=== PATIENT | male | born 1955 | race Caucasian/White ===

== ENCOUNTER → 2017-04-18 | Outpatient (REF) | payer BC | LOC: M LAB REF 16:31 | PROVIDERS: ATTEND Nurse Practitioner Adult Health | DX: R79.82 Elevated C-reactive protein (CRP) (principal) ==

== ENCOUNTER → 2019-03-15 | Outpatient (CLI) | payer BC ==
[~2019-03-15] MED LIST: AMLO5TAB6 PO; SYNT112T2 PO
--- NOTE | 2019-03-15 13:17 | REP ---
REASON: History of renal malignancy. PRIORS: None. FINDINGS: The superior mediastinal structures are midline. The cardiac silhouette is unremarkable in size, shape, and position. The diaphragmatic surfaces of the lungs are regular, and the costophrenic angles are clear. The pulmonary ann are clear. The imaged osseous structures are intact. COMMENT: If clinical suspicion is high due to the patient's cancer history then contrast enhanced CT is more sensitive. IMPRESSION: There is no acute cardiopulmonary disease. Electronically Signed by Arturo Lilly DO 03/15/2019 01:41 P
[2019-03-15 18:01] LABS: BLOOD UREA NITROGEN 20 MG/DL (7-18); CREATININE FOR GFR 1.01 MG/DL (0.70-1.30); GLOMERULAR FILTRATION RATE > 60.0 (>49); PROSTATIC SPECIFIC AG MONITOR 2.27 NG/ML (< 4.00)
== END ==
LOC: M WUC 12:39
PROVIDERS: ATTEND Urology
DX: R97.20 Elevated prostate specific antigen [PSA] (principal); Z01.812 Encounter for preprocedural laboratory examination; Z85.528 Personal history of other malignant neoplasm of kidney

== ENCOUNTER 2019-06-03 18:11 | Emergency (ER) | payer BC ==
[~2019-06-03] VITALS: Ht 175.3 cm; Wt 86.4 kg
[2019-06-03] MEDS ORDERED: AMLO5TAB6 PO (18:27)
[2019-06-03] MEDS ORDERED: SYNT112T2 PO (18:27)
[2019-06-03] MEDS ORDERED: ADACEL/BOOSTRIX VACCINE (DIPHTH/PERTUSS/ACELL/TETANUS)0.5ML SYR (90715) IM ONE (20:30)
[2019-06-03 20:41] VITALS: BP 170/79
== END 2019-06-03 20:49 | disposition home or self-care (01) ==
LOC: M ED 18:11
DX: S01.01XA Laceration without foreign body of scalp, initial encounter (principal); W22.09XA Striking against other stationary object, initial encounter; Y92.098 Other place in other non-institutional residence as the place of occurrence of the external cause; Z79.899 Other long term (current) drug therapy

== ENCOUNTER 2019-09-23 06:25 | Day surgery (SDC) | payer BC ==
[~2019-09-23] VITALS: Ht 175.3 cm; Wt 89.4 kg
[2019-09-23] MEDS ORDERED: NS 1,000 ML IV ONE (06:30)
[2019-09-23] MEDS ORDERED: LIDOCAINE 2% INJ 100 MG/5 ML SDV (FOR ANES.) As Ordered ONE (07:12)
[2019-09-23] MEDS ORDERED: propofoL 200 MG/20 ML VIAL As Ordered ONE ×2 (07:12→08:11)
--- NOTE | 2019-09-23 08:30 | ROOR ---
Patient Name: Femi Stallworth Procedure Date: 09/23/2019 8:02 AM Date of : 1955 Age: 64 Room: [facility] Gender: Male Note Status: Finalized Procedure: Total Colonoscopy to Cecum Indications: Screening for colorectal malignant neoplasm, Last colonoscopy: 2007 Providers: Nacho Walsh MD Referring MD: Heaven Fraser NP Requesting Provider: Medicines: Monitored Anesthesia Care Complications: No immediate complications. Procedure: Pre-Anesthesia Assessment: - The heart rate, respiratory rate, oxygen saturations, blood pressure, adequacy of pulmonary ventilation, and response to care were monitored throughout the procedure. The Colonoscope was introduced through the anus and advanced to the cecum, identified by appendiceal orifice and ileocecal valve. The colonoscopy was performed without difficulty. The patient tolerated the procedure well. The quality of the bowel preparation was excellent. Findings: The perianal and digital rectal examinations were normal. Non-bleeding internal hemorrhoids were found during retroflexion. The hemorrhoids were small and Grade I (internal hemorrhoids that do not prolapse). Scattered small-mouthed diverticula were found in the recto-sigmoid colon, sigmoid colon and descending colon. The exam was otherwise without abnormality on direct and retroflexion views. Impression: - Non-bleeding internal hemorrhoids. - Diverticulosis in the recto-sigmoid colon, in the sigmoid colon and in the descending colon. - The examination was otherwise normal on direct and retroflexion views. - No specimens collected. - The exam was otherwise normal to the cecum. Recommendation: - Patient has a contact number available for emergencies. The signs and symptoms of potential delayed complications were discussed with the patient. Return to normal activities tomorrow. Written discharge instructions were provided to the patient. - High fiber diet. - Discharge patient to home. - Continue present medications. - Repeat colonoscopy in 10 years for screening purposes. - Return to referring physician. - The findings and recommendations were discussed with the patient's family. Nacho Walsh MD Nacho Walsh MD 09/23/2019 8:29:32 AM Electronically signed by Nacho Walsh MD Number of Addenda: 0 Note Initiated On: 09/23/2019 8:02 AM Estimated Blood Loss: Estimated blood loss: none.
[2019-09-23 08:57] VITALS: BP 166/81
== END 2019-09-23 08:59 | disposition home or self-care (01) ==
LOC: M OPP 06:25
PROVIDERS: ATTEND Internal Medicine Gastroenterology
DX: Z12.11 Encounter for screening for malignant neoplasm of colon (principal); K64.0 First degree hemorrhoids; K57.30 Diverticulosis of large intestine without perforation or abscess without bleeding; Z79.899 Other long term (current) drug therapy

== ENCOUNTER → 2020-03-09 | Outpatient (REF) | payer BC ==
[~2020-03-09] MED LIST changes: +ACET-897 PO; +AMLO1TAB24 PO; +AMLO1TAB25 PO; -AMLO5TAB6 PO; +CIPR500T3; +CIPR500T3 PO; +LEVO500T3 PO; +LOSA50TA88; +LOSA50TA88 PO; +PROBCAP14 PO
[2020-04-23 13:01] LABS: BLOOD UREA NITROGEN 19 MG/DL (7-18); CREATININE FOR GFR 1.17 MG/DL (0.70-1.30); GLOMERULAR FILTRATION RATE > 60.0 (>49); PROSTATIC SPECIFIC AG MONITOR 4.59 NG/ML (< 4.00)
== END ==
LOC: M WUC 12:57
PROVIDERS: ATTEND Urology
DX: N40.1 Benign prostatic hyperplasia with lower urinary tract symptoms (principal); Z85.528 Personal history of other malignant neoplasm of kidney

== ENCOUNTER 2020-06-09 17:28 | Inpatient (IN) | payer BC ==
[~2020-06-09] VITALS: Ht 175.3 cm; Wt 96.0 kg
[2020-06-09] MEDS: NS 1,000 ML IV SCH (02:00)
[~2020-06-09 17:28] MED LIST changes: -ACET-897 PO; -AMLO1TAB25 PO; -CIPR500T3; -CIPR500T3 PO; -LEVO500T3 PO; -LOSA50TA88; -LOSA50TA88 PO; -PROBCAP14 PO
[2020-06-09 19:18] LABS: BASO % 0.3 % (0.0-1.0); EOS % 0.2 % (0.0-3.0); HEMATOCRIT 42.2 % (42.0-52.0); HEMOGLOBIN 13.6 g/dl (13.5-17.5); LYMPH # 0.5 10^3/uL (1.5-5.0); LYMPH % 3.5 % (24.0-44.0); MEAN CORPUSCULAR HEMOGLOBIN 27.1 pg (27.0-33.0); MEAN CORPUSCULAR HGB CONC 32.2 g/dl (32.0-36.5); MEAN CORPUSCULAR VOLUME 84.2 fl (80.0-96.0); MONO # 0.7 10^3/uL (0.0-0.8); MONO % 5.2 % (0.0-5.0); NEUTROPHILS # 12.6 10^3/uL (1.5-8.5); NEUTROPHILS % 89.9 % (36.0-66.0); PLATELET COUNT, AUTOMATED 222 10^3/uL (150-450); RED BLOOD COUNT 5.01 10^6/uL (4.30-6.10)
[2020-06-09 19:42] LABS: ALBUMIN 3.8 GM/DL (3.2-5.2); ALT/SGPT 26 U/L (12-78); BILIRUBIN,DIRECT 0.2 MG/DL (0.0-0.2); BILIRUBIN,TOTAL 0.5 MG/DL (0.2-1.0); BLOOD UREA NITROGEN 22 MG/DL (7-18); CALCIUM LEVEL 9.2 MG/DL (8.8-10.2); CARBON DIOXIDE LEVEL 24 MEQ/L (21-32); CHLORIDE LEVEL 103 MEQ/L (98-107); CREATININE FOR GFR 1.26 MG/DL (0.70-1.30); GLOMERULAR FILTRATION RATE > 60.0 (>49); GLUCOSE, FASTING 111 MG/DL (70-100); POTASSIUM SERUM 3.9 MEQ/L (3.5-5.1); SODIUM LEVEL 134 MEQ/L (136-145); TOTAL PROTEIN 7.2 GM/DL (6.4-8.2)
[2020-06-09] MEDS ORDERED: ACETAMINOPHEN TAB 650MG DOSE (2X325MG) PO ONE (19:45)
[2020-06-09] MEDS ORDERED: NS 1,000 ML IV ONE (19:45)
[2020-06-09] MEDS ORDERED: PIPERACILLIN/TAZOBACTAM SOD 3.375 GM in D5W MINI-BAG PLUS 50 ML IV ONE (20:00)
[2020-06-09] MEDS ORDERED: CIPR500T3 (20:20)
[2020-06-09] MEDS ORDERED: LOSA50TA88 (20:20)
[2020-06-09] MEDS ORDERED: CIPR500T3 PO (21:50)
[2020-06-09] MEDS ORDERED: ACET-897 PO (21:50)
[2020-06-09] MEDS ORDERED: LOSA50TA88 PO (21:50)
[2020-06-09] MEDS ORDERED: AMLO1TAB25 PO (21:50)
[2020-06-09] MEDS ORDERED: MOM 30ML SUSPENSION UDC PO PRN (22:30)
[2020-06-09] MEDS ORDERED: VANCOMYCIN HCL 1,000 MG, VIAL MATE ADAPTER 1 EACH in D5W 250 ML IV ONE (22:45)
--- NOTE | 2020-06-09 22:54 | HPEPDOC ---
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 These symptoms developed after prostate biopsy done yesterday. Tells me he had been feeling well up until this point and felt well immediately after the biopsy. Tells me he feels otherwise well with no other new complaints. Denies any shortness of breath or chest pain. Has history of urinary frequency for about 6 years for which she follows up with urology Dr. Scales. He last had an MRI of his prostate 6 years ago and then again 2 weeks ago with a suspicious area which prompted urology to request a prostate biopsy which was completed yesterday in [facility]. In the ED patient met sepsis criteria with tachycardia, leukocytosis, fever and was started on Zosyn and IV fluids. Initial lactate was 1.58 and blood pressure was okay. Patient will be admitted to medical unit for medical management of sepsis which at this point is suspected to be due to acute bacterial prostatitis triggered by the biopsy. PAST MEDICAL HISTORY: History of liposarcoma with left-sided nephrectomy follows with Dr. Bailey Hypertension Hypothyroidism PAST SURGICAL HISTORY: Left-sided nephrectomy SOCIAL HISTORY: Denies alcohol use Denies tobacco use Denies illicit drug use FAMILY HISTORY: Mom had diabetes and thyroid cancer Grandmother has history of bladder cancer ALLERGIES: Please see below. REVIEW OF SYSTEMS: Constitutional: No sweating or weight loss. Dorsalis fever, chills, malaise Eyes: No eye pain or acute blurred vision HENT: No complaints of headache or sore throat Cadiovascular: No Chest pain or palpitations Pulm: No SOB or cough Gastrointestinal: No N/V, no abdominal pain. Genitourinary: No dysuria or hematuria. Reports urinary frequency. Musculoskeletal: No back pain or joint pain Skin: No rash or jaundice Neurological: No weakness. HOME MEDICATIONS: Please see below. PHYSICAL EXAMINATION: Constitutional: Awake and alert, in no apparent distress ENT: Sclera are clear. Mucosa is moist. Respiratory: Lungs CTA bilaterally. No respiratory distress. No use of accessory muscles. Cardiovascular: RRR S1 and S2 are normal, no murmur Gastrointestinal: Abdomen is soft, non distended, non tender, BS present. : No CVA tenderness Musculoskeletal: No edema. No joint deformities. RUE 5/5, LUE 5/5, BLE 5/5 Neurologic: No focal neurological deficit. Mental Status: A&O x3, normal affect Skin: Warm, dry. Left flank scar site of left nephrectomy. LABORATORY DATA: See below. IMAGING: Chest x-ray pending. MICROBIOLOGY: Please see below. 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 In the ED patient met sepsis criteria with tachycardia, leukocytosis, fever and was started on Zosyn and IV fluids. Patient will be admitted to medical unit for medical management of sepsis which at this point is suspected to be due to acute bacterial prostatitis triggered by the biopsy. # Sepsis: Suspected to be secondary to acute bacterial prostatitis. Fu BCx, UCx, CXR. Sepsis bundle. Initial lactate 1.58. Fu repeat lactate. IVFs NS @140. Started on Zoysn & Vanc. MRSA screen pending. # Hypertension: Continue home meds. Monitor and titrate. # Hypothyroidism: Continue levothyroxine. # L. nephrectomy: Due to liposarcoma. avoid nephrotoxins. Follows with Dr Bailey. # DVT prophylaxis: Heparin A [facility] Hospitalist Vital Signs Vital Signs Date Time Temp Pulse Resp B/P (MAP) Pulse Ox O2 Delivery O2 Flow Rate FiO2 06/09/20 21:19 99.7 06/09/20 21:15 83 118/64 (82) 95 Room Air 06/09/20 19:13 18 Laboratory Data Labs 24H Laboratory Tests 2 06/09/20 18:45: Immature Granulocyte % (Auto) 0.9, Neutrophils (%) (Auto) 89.9H, Lymphocytes (%) (Auto) 3.5L, Monocytes (%) (Auto) 5.2H, Eosinophils (%) (Auto) 0.2, Basophils (%) (Auto) 0.3, Neutrophils # (Auto) 12.6H, Lymphocytes # (Auto) 0.5L, Monocytes # (Auto) 0.7, Eosinophils # (Auto) 0.0, Basophils # (Auto) 0.0, Nucleated Red Blood Cells % (auto) 0.0, Urine Color YELLOW, Urine Appearance CLEAR, Urine pH 5.0, Urine Specific [place] 1.020, Urine Protein 1+H, Urine Glucose (UA) NEGATIVE, Urine Ketones NEGATIVE, Urine Blood NEGATIVE, Urine Nitrite NEGATIVE, Urine Bilirubin NEGATIVE, Urine Urobilinogen 0.2, Urine Leukocyte Esterase NEGATIVE, Urine WBC (Auto) 1, Urine RBC (Auto) 5H, Urine Hyaline Casts (Auto) 0, Urine Bacteria (Auto) NEGATIVE, Urine Squamous Epithelial Cells 0, Urine Sperm (Auto) , Anion Gap 7L, Glomerular Filtration Rate > 60.0, Calcium Level 9.2, Total Bilirubin 0.5, Direct Bilirubin 0.2, Aspartate Amino Transf (AST/SGOT) 20, Alanine Aminotransferase (ALT/SGPT) 26, Alkaline Phosphatase 54, Total Protein 7.2, Albumin 3.8, Albumin/Globulin Ratio 1.1 06/09/20 21:17: POC Lactate (Misc Panel) 1.58 CBC/BMP Laboratory Tests 06/09/20 18:45 Microbiology Microbiology 06/09/20 Respiratory Virus Panel (PCR) (CLAUDIA) - Final, Complete 06/09/20 Blood Culture, Received Pending 06/09/20 Blood Culture, Received Pending Home Medications Scheduled Amlodipine Besylate (Amlodipine Besylate) 10 Mg Tablet, 5 MG PO DAILY Ciprofloxacin HCl (Ciprofloxacin HCl) 500 Mg Tablet, 500 MG PO BID HAS TAKEN 5 OF 8 DOSES Levothyroxine Sodium (Synthroid) 112 Mcg Tablet, 112 MCG PO DAILY Losartan Potassium (Losartan Potassium) 50 Mg Tablet, 50 MG PO DAILY Scheduled PRN Acetaminophen (Tylenol Extra Strength) 500 Mg Tablet, 1,000 MG PO Q6H PRN for PAIN / FEVER Allergies Coded Allergies: No Known Allergies (Unverified , 06/03/19) A-FIB/CHADSVASC A-FIB History Current/History of A-Fib/PAF?: No CRISTOBAL MARTE MD Jun 09, 2020 22:54
--- NOTE | 2020-06-09 23:23 | REPVR ---
PROCEDURE INFORMATION: Exam: XR Chest, 1 View Exam date and time: 06/09/2020 10:59 PM Age: 64 years old Clinical indication: Other: Sepsis TECHNIQUE: Imaging protocol: XR of the chest Views: 1 view. COMPARISON: CR CHEST 2 VIEW 03/15/2019 12:50 PM FINDINGS: Lungs: There is no evidence of consolidation of lung. Pleural space: There is no evidence of pneumothorax. There is blunting of the right costophrenic angle which may be the result of a small pleural effusion or pleurisy. Heart/Mediastinum: There is mild prominence left side of the heart. Bones/joints: Unremarkable. IMPRESSION: Mild blunting of the right costophrenic angle may be the result of a small right pleural effusion or changes of pleurisy. Electronically signed by: Juan C Burleson On 06/09/2020 23:22:53 PM
[2020-06-10] VITALS (7 sets, daily range): BP systolic 129–168; BP diastolic 65–82
[2020-06-10] MEDS: ACETAMINOPHEN TAB 650MG DOSE (2X325MG) PO PRN ×5 (01:12→21:12)
[2020-06-10] MEDS ORDERED: PIPERACILLIN/TAZOBACTAM SOD 4.5 GM in D5W MINI-BAG PLUS 50 ML IV SCH (02:00)
[2020-06-10] MEDS: VANCOMYCIN HCL 1,000 MG, VIAL MATE ADAPTER 1 EACH in D5W 250 ML IV SCH ×4 (02:15→18:30)
[2020-06-10] MEDS: PIPERACILLIN/TAZOBACTAM SOD 4.5 GM in D5W MINI-BAG PLUS 50 ML IV SCH ×4 (04:20→21:13)
[2020-06-10 06:02] LABS: HEMATOCRIT 44.3 % (42.0-52.0); MEAN CORPUSCULAR HEMOGLOBIN 27.2 pg (27.0-33.0); MEAN CORPUSCULAR HGB CONC 31.6 g/dl (32.0-36.5); MEAN CORPUSCULAR VOLUME 86.2 fl (80.0-96.0); PLATELET COUNT, AUTOMATED 203 10^3/uL (150-450); RED BLOOD COUNT 5.14 10^6/uL (4.30-6.10); WHITE BLOOD COUNT 14.3 10^3/uL (4.0-10.0)
[2020-06-10 06:31] LABS: ALBUMIN 3.4 GM/DL (3.2-5.2); BILIRUBIN,TOTAL 1.1 MG/DL (0.2-1.0); CALCIUM LEVEL 8.6 MG/DL (8.8-10.2); CREATININE FOR GFR 1.33 MG/DL (0.70-1.30); POTASSIUM SERUM 4.2 MEQ/L (3.5-5.1); TOTAL PROTEIN 6.8 GM/DL (6.4-8.2)
[2020-06-10] MEDS ORDERED: FLUBLOK(EGG FREE)(QUAD)INFLUENZA VACC 0.5ML SYRINGE 18YRS & OLDER IM ONE (09:00)
[2020-06-10] MEDS: LEVOTHYROXINE 112MCG TABLET (0.112MG) PO SCH (09:42)
[2020-06-10] MEDS: LOSARTAN 50MG TABLET PO SCH (09:43)
[2020-06-10] MEDS: amLODIPine 5 MG TAB PO SCH (09:43)
[2020-06-10] MEDS: HEPARIN SOD (PORCINE) 5000UNITS/ML 1ML VIAL/SYRINGE SC SCH ×2 (09:45→21:13)
--- NOTE | 2020-06-10 12:24 | IPNPDOC ---
Date Seen The patient was seen on 06/10/20. Progress Note SUBJECTIVE: T max overnight 103.1. WBC slightly incr 14.3, on zosyn and vancomycin. Requesting most recent biopsy, urology office and MRI notes. Denies chest pain, shortness of breath, n/v/d. OBJECTIVE: PHYSICAL EXAMINATION: VS: Please see below Constitutional: Feels warm to touch today, Awake and alert, in no apparent distress ENT: Sclera are clear. Mucosa is moist. Respiratory: Lungs CTA bilaterally. No respiratory distress. No use of accessory muscles. Cardiovascular: tachycardia, sinus. RRR S1 and S2 are normal, no murmur Gastrointestinal: Abdomen is soft, non distended, non tender, BS present. : No CVA tenderness Musculoskeletal: No edema. No joint deformities. RUE 5/5, LUE 5/5, BLE 5/5 Neurologic: No focal neurological deficit. Mental Status: A&O x3, normal affect Skin: Warm, dry. Left flank scar site of left nephrectomy. LABORATORY DATA: See below. IMAGING: Chest x-ray pending. 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 PLAN: # Sepsis 2/2 to acute bacterial prostatitis. R/o other bacterial source. -WBC slightly incr to 14.3, febrile with T max 103.1. -F/u BCx, uCx. -MRSA neg -LA wnl. -C/w IVFs, zosyn, vancomycin -F/u daily labs, records requested from most recent biopsy, urology office note, MRI results -If s/s of sepsis worsen, consider CT abd/pelvis with contrast to r/o prostate abscess # Hypertension -Stable. -C/w home meds # Hypothyroidism -C/w levothyroxine # Hx of left nephrectomy. hx of liposarcoma -Avoid nephrotoxins -Follows with Dr. Bailey #Prostate growth? -Recent prostate biopsy -F/u records when they arrive to see what they are suspecting (poss malignancy?) # DVT prophylaxis -Heparin DISPOSITION: C/w plan above under inpatient status. F/u records. Consider urology consult. Plan is discharge home when medically improved. VS, I&O, 24H, [facility] Vital Signs/I&O Vital Signs Date Time Temp Pulse Resp B/P (MAP) Pulse Ox O2 Delivery O2 Flow Rate FiO2 06/10/20 09:55 99.7 06/10/20 09:43 136/69 06/10/20 09:43 94 06/10/20 07:52 18 95 Room Air I&O- Last 24 Hours up to 6 AM 06/10/20 06:00 Intake Total 1050 ml Output Total 200 ml Balance 850 ml Laboratory Data 24H LABS Laboratory Tests 2 06/09/20 18:45: Immature Granulocyte % (Auto) 0.9, Neutrophils (%) (Auto) 89.9H, Lymphocytes (%) (Auto) 3.5L, Monocytes (%) (Auto) 5.2H, Eosinophils (%) (Auto) 0.2, Basophils (%) (Auto) 0.3, Neutrophils # (Auto) 12.6H, Lymphocytes # (Auto) 0.5L, Monocytes # (Auto) 0.7, Eosinophils # (Auto) 0.0, Basophils # (Auto) 0.0, Nucleated Red Blood Cells % (auto) 0.0, Urine Color YELLOW, Urine Appearance CLEAR, Urine pH 5.0, Urine Specific [place] 1.020, Urine Protein 1+H, Urine Glucose (UA) NEGATIVE, Urine Ketones NEGATIVE, Urine Blood NEGATIVE, Urine Nitrite NEGATIVE, Urine Bilirubin NEGATIVE, Urine Urobilinogen 0.2, Urine Leukocyte Esterase NEGATIVE, Urine WBC (Auto) 1, Urine RBC (Auto) 5H, Urine Hyaline Casts (Auto) 0, Urine Bacteria (Auto) NEGATIVE, Urine Squamous Epithelial Cells 0, Urine Sperm (Auto) , Anion Gap 7L, Glomerular Filtration Rate > 60.0, Calcium Level 9.2, Total Bilirubin 0.5, Direct Bilirubin 0.2, Aspartate Amino Transf (AST/SGOT) 20, Alanine Aminotransferase (ALT/SGPT) 26, Alkaline Phosphatase 54, Total Protein 7.2, Albumin 3.8, Albumin/Globulin Ratio 1.1 06/09/20 18:46: Lactic Acid Level 1.9 06/09/20 21:17: POC Lactate (Misc Panel) 1.58 06/10/20 05:21: Nucleated Red Blood Cells % (auto) 0.0, Anion Gap 5L, Glomerular Filtration Rate 58.0, Calcium Level 8.6L, Total Bilirubin 1.1#H, Aspartate Amino Transf (AST/SGOT) 19, Alanine Aminotransferase (ALT/SGPT) 24, Alkaline Phosphatase 51, Total Protein 6.8, Albumin 3.4, Albumin/Globulin Ratio 1.0, Lactic Acid Level 1.9 06/10/20 09:56: Methicillin-Resist S.aureus DNA PCR NOT DETECTED CBC/BMP Laboratory Tests 06/09/20 18:45 06/10/20 05:21 Microbiology Microbiology 06/09/20 Urine Culture, Received Pending 06/09/20 Respiratory Virus Panel (PCR) (CLAUDIA) - Final, Complete 06/09/20 Blood Culture, Received Pending 06/09/20 Blood Culture, Received Pending Current Medications Current Medications Medications (Trade) Dose Ordered Sig/Jacque Route PRN Reason Start Time Stop Time Status Last Admin Dose Admin Acetaminophen (Tylenol Tab) 650 mg Q4H PRN PO PAIN OR FEVER 06/09/20 22:30 06/10/20 12:00 Amlodipine Besylate (Norvasc) 5 mg DAILY PO 06/10/20 09:00 06/10/20 09:43 Heparin Sodium (Porcine) (Heparin) 5,000 units Q12H SC 06/10/20 09:00 06/10/20 09:45 Home Med (Med Rec Complete!) ASDIRECTED XX 06/09/20 22:00 06/09/20 21:52 DC Levothyroxine Sodium (Synthroid) 112 mcg DAILY PO 06/10/20 09:00 06/10/20 09:42 Losartan Potassium (Cozaar) 50 mg DAILY PO 06/10/20 09:00 06/10/20 09:43 Magnesium Hydroxide (Milk Of Magnesia) 30 ml DAILY PRN PO CONSTIPATION 06/09/20 22:30 Piperacillin Sod/ Tazobactam Sod 4.5 gm/Dextrose 50 ml @ 50 mls/hr Q6H IV 06/10/20 02:00 06/10/20 02:13 DC Piperacillin Sod/ Tazobactam Sod 4.5 gm/Dextrose 50 ml @ 50 mls/hr Q6H IV 06/10/20 04:00 06/10/20 09:42 Sodium Chloride 1,000 ml @ 100 mls/hr Q10H IV 06/09/20 22:45 06/11/20 11:02 06/09/20 02:00 Vancomycin HCl 1000 mg/IV Miscellaneous Supplies 1 each/ Dextrose 270 ml @ 270 mls/hr Q8H IV 06/10/20 03:00 06/10/20 11:36 Allergies Coded Allergies: No Known Allergies (Unverified , 06/03/19) Patito Reyes MD Jun 10, 2020 12:24
[2020-06-10] MEDS: NS 1,000 ML IV SCH (14:47)
[2020-06-11] MEDS: ACETAMINOPHEN TAB 650MG DOSE (2X325MG) PO PRN ×4 (00:57→16:23)
[2020-06-11] MEDS: VANCOMYCIN HCL 1,000 MG, VIAL MATE ADAPTER 1 EACH in D5W 250 ML IV SCH ×3 (02:36→18:41)
[2020-06-11] MEDS: PIPERACILLIN/TAZOBACTAM SOD 4.5 GM in D5W MINI-BAG PLUS 50 ML IV SCH ×4 (04:12→22:49)
[2020-06-11 04:22] LABS: HEMATOCRIT 43.1 % (42.0-52.0); HEMOGLOBIN 13.1 g/dl (13.5-17.5); MEAN CORPUSCULAR HEMOGLOBIN 27.1 pg (27.0-33.0); MEAN CORPUSCULAR HGB CONC 30.4 g/dl (32.0-36.5); MEAN CORPUSCULAR VOLUME 89.2 fl (80.0-96.0); PLATELET COUNT, AUTOMATED 140 10^3/uL (150-450); RED BLOOD COUNT 4.83 10^6/uL (4.30-6.10); WHITE BLOOD COUNT 7.6 10^3/uL (4.0-10.0)
[2020-06-11 04:48] LABS: ALBUMIN 2.9 GM/DL (3.2-5.2); BILIRUBIN,TOTAL 0.7 MG/DL (0.2-1.0); CREATININE FOR GFR 1.34 MG/DL (0.70-1.30); GLOMERULAR FILTRATION RATE 57.5 (>49); POTASSIUM SERUM 3.8 MEQ/L (3.5-5.1); TOTAL PROTEIN 6.2 GM/DL (6.4-8.2)
[2020-06-11 06:00] VITALS: BP 122/65
[2020-06-11 08:00] VITALS: BP 112/61
[2020-06-11] MEDS: HEPARIN SOD (PORCINE) 5000UNITS/ML 1ML VIAL/SYRINGE SC SCH (08:48)
[2020-06-11] MEDS: LEVOTHYROXINE 112MCG TABLET (0.112MG) PO SCH (08:49)
[2020-06-11] MEDS: LOSARTAN 50MG TABLET PO SCH (08:49)
[2020-06-11 08:50] VITALS: BP 112/61
[2020-06-11] MEDS: amLODIPine 5 MG TAB PO SCH (08:50)
[2020-06-11] MEDS: NS 1,000 ML IV SCH (08:55)
[2020-06-11] MEDS ORDERED: ISOVUE-370 76% 100ML VIAL As Ordered ONE (09:13)
--- NOTE | 2020-06-11 10:06 | REP ---
INDICATION: r/o prostate abscess. COMPARISON: None TECHNIQUE: Both of 100 mL Isovue 370 scanning through the abdomen pelvis with coronal and sagittal reconstructions provided. FINDINGS: CT abdomen lung bases show epicardial fat pad and some minor scarring medial segment right middle lobe. There is some curvilinear atelectasis or scarring in the deep sulcus left lower lobe. No effusion or definite infiltrate. Heart size not grossly enlarged. There is a small hiatal hernia. The liver is upper limits of normal at 18 cm diameter midclavicular line and some fatty infiltration noted. Left lobe mildly prominent. No focal hepatic mass or biliary dilatation. Gallbladder without calcified stone or mass spleen unremarkable. There is no ascites in the upper abdomen, adrenal glands were normal. Right kidney shows no solid mass, stone or hydronephrosis. There is a sub cm cortical cyst lower pole of the right kidney, left kidney is surgically absent. There are clips from the prior nephrectomy. Left adrenal gland normal. Small bowel loops occupy the left renal fossa. Pancreas shows no mass, ductal dilatation, calcification or peripancreatic adenopathy. The aorta is without aneurysm or dissection. No periaortic, mesenteric or retroperitoneal pathologic sized lymphadenopathy. Lung window review of abdominal slices shows no perforation or free air. Appendix is seen and normal. Abdominal portion of colon and small bowel loops were unremarkable. No ventral hernia. Bone windows show no acute findings in the lumbar or thoracic spine and their posterior elements. Visualized ribs intact. CT pelvis: The bony sacrum, pelvis and hips show degenerative changes without fracture or destructive lesion. There is diverticulosis of the distal left colon and sigmoid without diverticulitis. Scattered stool and gas in the colon and an air-fluid level in the rectum with some stool. Prostate is enlarged measuring 5.9 x 4.7 cm. It elevates the bladder base. I do not see air bubbles or abscess within the prostate or adjacent soft tissues. Bladder without mass wall thickening or stone. Small bowel loops in the pelvis unremarkable no ventral or inguinal hernia nor pathologic sized inguinal adenopathy. IMPRESSION: 1. Prostate enlargement with indentation of the bladder base and without intra prostatic or periprostatic abscess identified. No air bubbles or perforation suggested. No free air in the pelvis. 2. Diverticulosis distal left colon and proximal sigmoid without diverticulitis. Stool and gas scattered throughout the colon but there is an air-fluid level within the rectum but no perirectal fluid or perforation evident. 3. Status post left nephrectomy with no mass in the left renal fossa. The adrenal glands, right kidney spleen pancreas and gallbladder were unremarkable. 4. Mild hepatomegaly and fatty infiltration of the liver without focal hepatic mass. A small hiatal hernia seen. <Electronically signed by Jose Browning > 06/11/20 1002
[2020-06-11 12:00] VITALS: BP 134/70
--- NOTE | 2020-06-11 15:01 | IPNPDOC ---
Date Seen The patient was seen on 06/11/20. Progress Note SUBJECTIVE: T max overnight 102.1. WBC now wnl at 7.6 from 14K, on zosyn and vancomycin. CT abd/pelvis with contrast ruled out prostate abscess. MRI done o/p received. Denies chest pain, shortness of breath, n/v/d. OBJECTIVE: PHYSICAL EXAMINATION: VS: Please see below Constitutional: NAD, sitting up in bed, Awake and alert, in no apparent distress ENT: Sclera are clear. Mucosa is moist. Respiratory: Lungs CTA bilaterally. No respiratory distress. No use of accessory muscles. Cardiovascular: tachycardia, sinus. RRR S1 and S2 are normal, no murmur Gastrointestinal: Abdomen is soft, non distended, non tender, BS present. : No CVA tenderness Musculoskeletal: No edema. No joint deformities. RUE 5/5, LUE 5/5, BLE 5/5 Neurologic: No focal neurological deficit. Mental Status: A&O x3, normal affect Skin: Warm, dry. Left flank scar site of left nephrectomy. LABORATORY DATA: See below. IMAGING: CT abd/pelvis with contrast: 1. Prostate enlargement with indentation of the bladder base and without intra prostatic or periprostatic abscess identified. No air bubbles or perforation suggested. No free air in the pelvis. 2. Diverticulosis distal left colon and proximal sigmoid without diverticulitis. Stool and gas scattered throughout the colon but there is an air-fluid level within the rectum but no perirectal fluid or perforation evident. 3. Status post left nephrectomy with no mass in the left renal fossa. The adrenal glands, right kidney spleen pancreas and gallbladder were unremarkable. 4. Mild hepatomegaly and fatty infiltration of the liver without focal hepatic mass. A small hiatal hernia seen. Chest x-ray: Mild blunting of the right costophrenic angle may be the result of a small right pleural effusion or changes of pleurisy. 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 PLAN: # Sepsis 2/2 to acute bacterial prostatitis. -WBC wnl this AM, febrile with T max 102F. -Micro above -C/w IVFs, zosyn, vancomycin -CT abd/pelvis with contrast above, ruled out abscess -At this time, would wait to see what abx continue to do. Although he spiked fevers last night, overall the temperatures have been decreasing so he may just need more time. All other sources of infection are ruled out. #Hematuria, acute -No caal catheter placement but has been on heparin here -Stopping heparin, monitor to see if continues -F/u CBC in AM -If continues, consider urology consult. #Left anterior apex prostate lesion s/p biopsy -Per o/p MRI (print out in paper chart), no extraprostatic malignancy identified in the pelvis -Pathology is to r/o malignancy -Patient to f/u as o/p with [facility]: Dr. Bundy and Dr. Lopez # Hypertension -Stable. -C/w home meds # Hypothyroidism -C/w levothyroxine # Hx of left nephrectomy. hx of liposarcoma -Avoid nephrotoxins -Follows with Dr. Bailey # DVT prophylaxis -Heparin DISPOSITION: C/w plan above under inpatient status. Plan is discharge home when medically improved. VS, I&O, 24H, [facility] Vital Signs/I&O Vital Signs Date Time Temp Pulse Resp B/P (MAP) Pulse Ox O2 Delivery O2 Flow Rate FiO2 06/11/20 12:00 100.4 70 16 134/70 (91) 97 Room Air I&O- Last 24 Hours up to 6 AM 06/11/20 05:59 Intake Total 2600 ml Output Total 320 ml Balance 2280 ml Laboratory Data 24H LABS Laboratory Tests 2 06/10/20 17:50: Vancomycin Level Trough 12.4 06/11/20 03:47: Nucleated Red Blood Cells % (auto) 0.0, Anion Gap 8, Glomerular Filtration Rate 57.5, Calcium Level 8.0L, Total Bilirubin 0.7, Aspartate Amino Transf (AST/SGOT) 37, Alanine Aminotransferase (ALT/SGPT) 40, Alkaline Phosphatase 43L, Total Pr otein 6.2L, Albumin 2.9L, Albumin/Globulin Ratio 0.9 06/11/20 09:55: Vancomycin Level Trough 15.7 CBC/BMP Laboratory Tests 06/11/20 03:47 Microbiology Microbiology 06/09/20 Urine Culture - Final, Complete 06/09/20 Respiratory Virus Panel (PCR) (CLAUDIA) - Final, Complete 06/09/20 Blood Culture - Preliminary, Resulted No growth after 24 hours . All specim... 06/09/20 Blood Culture - Preliminary, Resulted No growth after 24 hours . All specim... Current Medications Current Medications Medications (Trade) Dose Ordered Sig/Jacque Route PRN Reason Start Time Stop Time Status Last Admin Dose Admin Acetaminophen (Tylenol Tab) 650 mg Q4H PRN PO PAIN OR FEVER 06/09/20 22:30 06/11/20 12:46 Amlodipine Besylate (Norvasc) 5 mg DAILY PO 06/10/20 09:00 06/11/20 08:50 Heparin Sodium (Porcine) (Heparin) 5,000 units Q12H SC 06/10/20 09:00 06/11/20 14:47 DC 06/11/20 08:48 Home Med (Med Rec Complete!) ASDIRECTED XX 06/09/20 22:00 06/09/20 21:52 DC Levothyroxine Sodium (Synthroid) 112 mcg DAILY PO 06/10/20 09:00 06/11/20 08:49 Losartan Potassium (Cozaar) 50 mg DAILY PO 06/10/20 09:00 06/11/20 08:49 Magnesium Hydroxide (Milk Of Magnesia) 30 ml DAILY PRN PO CONSTIPATION 06/09/20 22:30 Piperacillin Sod/ Tazobactam Sod 4.5 gm/Dextrose 50 ml @ 50 mls/hr Q6H IV 06/10/20 02:00 06/10/20 02:13 DC Piperacillin Sod/ Tazobactam Sod 4.5 gm/Dextrose 50 ml @ 50 mls/hr Q6H IV 06/10/20 04:00 06/11/20 11:34 Sodium Chloride 1,000 ml @ 100 mls/hr Q10H IV 06/09/20 22:45 06/11/20 11:02 DC 06/11/20 08:55 Vancomycin HCl 1000 mg/IV Miscellaneous Supplies 1 each/ Dextrose 270 ml @ 270 mls/hr Q8H IV 06/10/20 03:00 06/11/20 12:46 Allergies Coded Allergies: No Known Allergies (Unverified , 06/03/19) Patito Reyes MD Jun 11, 2020 15:01
[2020-06-11 16:00] VITALS: BP 126/69
[2020-06-11 20:00] VITALS: BP 118/67
[2020-06-12] VITALS: BP 130/64
[2020-06-12] MEDS: NS 1,000 ML IV SCH ×2 (00:41→15:45)
[2020-06-12] MEDS: VANCOMYCIN HCL 1,000 MG, VIAL MATE ADAPTER 1 EACH in D5W 250 ML IV SCH ×2 (03:36→12:00)
[2020-06-12 04:00] VITALS: BP 148/72
[2020-06-12] MEDS: PIPERACILLIN/TAZOBACTAM SOD 4.5 GM in D5W MINI-BAG PLUS 50 ML IV SCH ×4 (05:06→23:22)
[2020-06-12 05:35] LABS: HEMATOCRIT 39.2 % (42.0-52.0); HEMOGLOBIN 12.3 g/dl (13.5-17.5); MEAN CORPUSCULAR HGB CONC 31.4 g/dl (32.0-36.5); PLATELET COUNT, AUTOMATED 161 10^3/uL (150-450); RED BLOOD COUNT 4.56 10^6/uL (4.30-6.10); WHITE BLOOD COUNT 5.4 10^3/uL (4.0-10.0)
[2020-06-12 05:59] LABS: ALBUMIN 2.7 GM/DL (3.2-5.2); BILIRUBIN,TOTAL 0.4 MG/DL (0.2-1.0); CALCIUM LEVEL 8.5 MG/DL (8.8-10.2); CREATININE FOR GFR 1.35 MG/DL (0.70-1.30); TOTAL PROTEIN 6.9 GM/DL (6.4-8.2)
[2020-06-12 07:54] VITALS: BP 142/87
[2020-06-12] MEDS: amLODIPine 5 MG TAB PO SCH (09:40)
[2020-06-12] MEDS: LEVOTHYROXINE 112MCG TABLET (0.112MG) PO SCH (09:40)
[2020-06-12] MEDS: LOSARTAN 50MG TABLET PO SCH (09:40)
[2020-06-12 11:00] LABS: PHOSPHORUS LEVEL 2.2 MG/DL (2.5-4.9)
[2020-06-12 12:00] VITALS: BP 149/78
[2020-06-12 20:00] VITALS: BP 136/74
--- NOTE | 2020-06-12 21:09 | IPNPDOC ---
Date Seen The patient was seen on 06/12/20. Progress Note SUBJECTIVE: Afebrile since 06/11/20 at 14:00. WBC remains wnl, d/mejia vancomycin today. Cr remained elevated at 1.35, incr IVFs. Denies chest pain, shortness of breath, n/v/d. OBJECTIVE: PHYSICAL EXAMINATION: VS: Please see below Constitutional: NAD, sitting up in bed, Awake and alert, in no apparent distress ENT: Sclera are clear. Mucosa is moist. Respiratory: Lungs CTA bilaterally. No respiratory distress. No use of accessory muscles. Cardiovascular: sinus. RRR S1 and S2 are normal, no murmur Gastrointestinal: Abdomen is soft, non distended, non tender, BS present. : No CVA tenderness Musculoskeletal: No edema. No joint deformities. RUE 5/5, LUE 5/5, BLE 5/5 Neurologic: No focal neurological deficit. Mental Status: A&O x3, normal affect Skin: Warm, dry. Left flank scar site of left nephrectomy. LABORATORY DATA: See below. IMAGING: CT abd/pelvis with contrast: 1. Prostate enlargement with indentation of the bladder base and without intra prostatic or periprostatic abscess identified. No air bubbles or perforation suggested. No free air in the pelvis. 2. Diverticulosis distal left colon and proximal sigmoid without diverticulitis. Stool and gas scattered throughout the colon but there is an air-fluid level within the rectum but no perirectal fluid or perforation evident. 3. Status post left nephrectomy with no mass in the left renal fossa. The adrenal glands, right kidney spleen pancreas and gallbladder were unremarkable. 4. Mild hepatomegaly and fatty infiltration of the liver without focal hepatic mass. A small hiatal hernia seen. Chest x-ray: Mild blunting of the right costophrenic angle may be the result of a small right pleural effusion or changes of pleurisy. 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 PLAN: # Sepsis 2/2 to acute bacterial prostatitis- resolved. -WBC wnl this AM, afebrile since 06/11 at 14:00 -Micro above -C/w IVFs, zosyn only. D/mejia vancomycin -CT abd/pelvis with contrast above, ruled out abscess -If afebrile overnight, plan is discharge with oral levofloxacin 500 mg PO daily x 4 weeks (empiric treatment) #Hematuria, acute likely 2/2 to heparin -No caal catheter placement but has been on heparin here -Stopped heparin, monitor to see if continues -F/u CBC in AM #Left anterior apex prostate lesion s/p biopsy -Per o/p MRI (print out in paper chart), no extraprostatic malignancy identified in the pelvis -Pathology is to r/o malignancy -Patient to f/u as o/p with [facility]: Dr. Bundy and Dr. Lopez # Hypertension -Stable. -C/w home meds # Hypothyroidism -C/w levothyroxine # Hx of left nephrectomy. hx of liposarcoma -Avoid nephrotoxins -Follows with Dr. Bailey # DVT prophylaxis -scd, teds DISPOSITION: C/w plan above under inpatient status. Plan is discharge home in AM if remains afebrile. VS, I&O, 24H, Fishbone Vital Signs/I&O Vital Signs Date Time Temp Pulse Resp B/P (MAP) Pulse Ox O2 Delivery O2 Flow Rate FiO2 06/12/20 20:00 98.0 67 18 136/74 (94) 96 Room Air I&O- Last 24 Hours up to 6 AM 06/12/20 06:00 Intake Total 3095 ml Output Total 875 ml Balance 2220 ml Laboratory Data 24H LABS Laboratory Tests 2 06/12/20 05:12: Nucleated Red Blood Cells % (auto) 0.0, Anion Gap 3L, Glomerular Filtration Rate 57.0, Calcium Level 8.5L, Phosphorus Level 2.2L, Magnesium Level 2.0, Total Bili adkins 0.4, Aspartate Amino Transf (AST/SGOT) 27, Alanine Aminotransferase (ALT/SGPT) 38, Alkaline Phosphatase 43L, Total Protein 6.9, Albumin 2.7L, Albumin/Globulin Ratio 0.6 CBC/BMP Laboratory Tests 06/12/20 05:12 Microbiology Microbiology 06/09/20 Urine Culture - Final, Complete 06/09/20 Respiratory Virus Panel (PCR) ([facility]UD[facility]) - Final, Complete 06/09/20 Blood Culture - Preliminary, Resulted No Growth after 72 hours. All specime... 06/09/20 Blood Culture - Preliminary, Resulted No Growth after 72 hours. All specime... Current Medications Current Medications Medications (Trade) Dose Ordered Sig/Jacque Route PRN Reason Start Time Stop Time Status Last Admin Dose Admin Acetaminophen (Tylenol Tab) 650 mg Q4H PRN PO PAIN OR FEVER 06/09/20 22:30 06/11/20 16:23 Amlodipine Besylate (Norvasc) 5 mg DAILY PO 06/10/20 09:00 06/12/20 09:40 Heparin Sodium (Porcine) (Heparin) 5,000 units Q12H SC 06/10/20 09:00 06/11/20 14:47 DC 06/11/20 08:48 Home Med (Med Rec Complete!) ASDIRECTED XX 06/09/20 22:00 06/09/20 21:52 DC Levothyroxine Sodium (Synthroid) 112 mcg DAILY PO 06/10/20 09:00 06/12/20 09:40 Losartan Potassium (Cozaar) 50 mg DAILY PO 06/10/20 09:00 06/12/20 09:40 Magnesium Hydroxide (Milk Of Magnesia) 30 ml DAILY PRN PO CONSTIPATION 06/09/20 22:30 Piperacillin Sod/ Tazobactam Sod 4.5 gm/Dextrose 50 ml @ 50 mls/hr Q6H IV 06/10/20 02:00 06/10/20 02:13 DC Piperacillin Sod/ Tazobactam Sod 4.5 gm/Dextrose 50 ml @ 50 mls/hr Q6H IV 06/10/20 04:00 06/12/20 15:45 Sodium Chloride 1,000 ml @ 100 mls/hr Q10H IV 06/09/20 22:45 06/11/20 11:02 DC 06/12/20 00:41 Sodium Chloride 1,000 ml @ 100 mls/hr Q10H IV 06/12/20 08:15 06/12/20 15:45 Vancomycin HCl 1000 mg/IV Miscellaneous Supplies 1 each/ Dextrose 270 ml @ 270 mls/hr Q8H IV 06/10/20 03:00 06/12/20 14:30 DC 06/12/20 12:00 Allergies Coded Allergies: No Known Allergies (Unverified , 06/03/19) Patito Reyes MD Jun 12, 2020 21:09
[2020-06-12] MEDS ORDERED: PROBCAP14 PO (21:11)
[2020-06-12] MEDS ORDERED: LEVO500T3 PO ×2 (21:11→21:13)
[2020-06-13] MEDS: NS 1,000 ML IV SCH (03:25)
[2020-06-13 04:00] VITALS: BP 146/80
[2020-06-13] MEDS: PIPERACILLIN/TAZOBACTAM SOD 4.5 GM in D5W MINI-BAG PLUS 50 ML IV SCH (04:26)
[2020-06-13 05:41] LABS: HEMATOCRIT 37.7 % (42.0-52.0); HEMOGLOBIN 11.7 g/dl (13.5-17.5); MEAN CORPUSCULAR HEMOGLOBIN 26.5 pg (27.0-33.0); MEAN CORPUSCULAR VOLUME 85.3 fl (80.0-96.0); PLATELET COUNT, AUTOMATED 199 10^3/uL (150-450); RED BLOOD COUNT 4.42 10^6/uL (4.30-6.10)
[2020-06-13 06:11] LABS: ALBUMIN 2.7 GM/DL (3.2-5.2); BILIRUBIN,TOTAL 0.3 MG/DL (0.2-1.0); CALCIUM LEVEL 8.2 MG/DL (8.8-10.2); CREATININE FOR GFR 1.3 MG/DL (0.70-1.30); GLOMERULAR FILTRATION RATE 59.5 (>49); POTASSIUM SERUM 4.1 MEQ/L (3.5-5.1); TOTAL PROTEIN 6.6 GM/DL (6.4-8.2)
[2020-06-13] MEDS ORDERED: LEVO500T3 PO (07:56)
[2020-06-13 08:00] VITALS: BP 142/66
[2020-06-13] MEDS: amLODIPine 5 MG TAB PO SCH (08:54)
[2020-06-13] MEDS: LEVOTHYROXINE 112MCG TABLET (0.112MG) PO SCH (08:54)
[2020-06-13] MEDS: LOSARTAN 50MG TABLET PO SCH (08:54)
--- NOTE | 2020-06-13 14:30 | DS.PDOC ---
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 These symptoms developed after prostate biopsy done yesterday. Tells me he had been feeling well up until this point and felt well immediately after the biopsy. Tells me he feels otherwise well with no other new complaints. Denies any shortness of breath or chest pain. Has history of urinary frequency for about 6 years for which she follows up with urology Dr. Scales. He last had an MRI of his prostate 6 years ago and then again 2 weeks ago with a suspicious area which prompted urology to request a pro state biopsy which was completed yesterday in [facility]. In the ED patient met sepsis criteria with tachycardia, leukocytosis, fever and was started on Zosyn and IV fluids. Initial lactate was 1.58 and blood pressure was okay. Patient will be admitted to medical unit for medical management of s epsis which at this point is suspected to be due to acute bacterial prostatitis triggered by the biopsy. HOSPITAL COURSE: On the floor, patient continued vancomycin, zosyn. Patient remained septic for several days after admission, spiking fevers, having elevated WBC. Gradually his fever resolved, WBC improved to wnl. He had one day of hematuria believed to be 2/2 to anticoagulation for DVT px- once removed this resolved. Cr increased to 1.35 but after fluids improved to wnl. On 06/13/20, patient was discharged home with PO levofloxacin x 25 days to complete 4 weeks of treatment for bacterial prostatitis. He is also prescribed probiotic. He is to follow up with PCP, urology after the weekend. At the time of discharge, patient denied chest pain, n/v/d, fevers, chills, abdominal pain, rectal or suprapubic pain. PAST MEDICAL HISTORY: History of liposarcoma with left-sided nephrectomy follows with Dr. Bailey Hypertension Hypothyroidism PAST SURGICAL HISTORY: Left-sided nephrectomy SOCIAL HISTORY: Denies alcohol use Denies tobacco use Denies illicit drug use FAMILY HISTORY: Mom had diabetes and thyroid cancer Grandmother has history of bladder cancer ALLERGIES: Please see below. DISCHARGE MEDICATIONS: Please see below. PHYSICAL EXAMINATION: VS: Please see below Constitutional: NAD, sitting up in bed, Awake and alert, in no apparent distress ENT: Sclera are clear. Mucosa is moist. Respiratory: Lungs CTA bilaterally. No respiratory distress. No use of accessory muscles. Cardiovascular: sinus. RRR S1 and S2 are normal, no murmur Gastrointestinal: Abdomen is soft, non distended, non tender, BS present. : No CVA tenderness Musculoskeletal: No edema. No joint deformities. RUE 5/5, LUE 5/5, BLE 5/5 Neurologic: No focal neurological deficit. Mental Status: A&O x3, normal affect Skin: Warm, dry. Left flank scar site of left nephrectomy. LABORATORY DATA: See below. IMAGING: CT abd/pelvis with contrast: 1. Prostate enlargement with indentation of the bladder base and without intra prostatic or periprostatic abscess identified. No air bubbles or perforation suggested. No free air in the pelvis. 2. Diverticulosis distal left colon and proximal sigmoid without diverticulitis. Stool and gas scattered throughout the colon but there is an air-fluid level within the rectum but no perirectal fluid or perforation evident. 3. Status post left nephrectomy with no mass in the left renal fossa. The adrenal glands, right kidney spleen pancreas and gallbladder were unremarkable. 4. Mild hepatomegaly and fatty infiltration of the liver without focal hepatic mass. A small hiatal hernia seen. Chest x-ray: Mild blunting of the right costophrenic angle may be the result of a small right pleural effusion or changes of pleurisy. 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 PLAN: # Sepsis 2/2 to acute bacterial prostatitis- resolved. -WBC wnl this AM, afebrile since 06/11 -Micro above -Completed several days of IV zosyn and vancomycin -CT abd/pelvis with contrast above, ruled out abscess -Plan: D/c home with oral levofloxacin 500 mg PO daily x to complete 4 weeks (empiric treatment) , probiotic #Hematuria, acute likely 2/2 to heparin- Resolved -Stopped heparin and this resolved. -H/h stable #Left anterior apex prostate lesion s/p biopsy -Per o/p MRI (print out in paper chart), no extraprostatic malignancy identified in the pelvis -Pathology is to r/o malignancy -Patient to f/u as o/p with [facility]: Dr. Bundy and Dr. Lopez # Hypertension -Stable. -C/w home meds # Hypothyroidism -C/w levothyroxine # Hx of left nephrectomy. hx of liposarcoma -Avoid nephrotoxins -Follows with Dr. Bailey DISPOSITION: C/w plan above and patient is to f/u with both PCP and urology after discharge. TIME SPENT ON DISCHARGE: 35 minutes. Vital Signs/I&Os Vital Signs Date Time Temp Pulse Resp B/P (MAP) Pulse Ox O2 Delivery O2 Flow Rate FiO2 06/13/20 08:00 97.7 62 16 142/66 (91) 98 Room Air I&O- Last 24 Hours up to 6 AM 06/13/20 05:59 Intake Total 4070 ml Output Total 925 ml Balance 3145 ml Laboratory Data Labs 24H Laboratory Tests 2 06/13/20 05:14: Nucleated Red Blood Cells % (auto) 0.0, Anion Gap 4L, Glomerular Filtration Rate 59.5, Calcium Level 8.2L, Total Bilirubin 0.3, Aspartate Amino Transf (AST/SGOT) 33, Alanine Aminotransferase (ALT/SGPT) 48, Alkaline Phosphatase 42L, Total Protein 6.6, Albumin 2.7L, Albumin/Globulin Ratio 0.7 CBC/BMP Laboratory Tests 06/13/20 05:14 Microbiology Microbiology 06/09/20 Urine Culture - Final, Complete 06/09/20 Respiratory Virus Panel (PCR) ([facility]UD[facility]) - Final, Complete 06/09/20 Blood Culture - Preliminary, Resulted No Growth after 72 hours. All specime... 06/09/20 Blood Culture - Preliminary, Resulted No Growth after 72 hours. All specime... Discharge Medications Scheduled Amlodipine Besylate (Amlodipine Besylate) 10 Mg Tablet, 5 MG PO DAILY, (Reported) Lactobacillus Acidophilus (Probiotic) 1 Each Capsule, 1 CAP PO BIDWM Levofloxacin (Levofloxacin) 500 Mg Tablet, 500 MG PO DAILY Levothyroxine Sodium (Synthroid) 112 Mcg Tablet, 112 MCG PO DAILY, (Reported) Losartan Potassium (Losartan Potassium) 50 Mg Tablet, 50 MG PO DAILY, (Reported) Scheduled PRN Acetaminophen (Tylenol Extra Strength) 500 Mg Tablet, 1,000 MG PO Q6H PRN for PAIN / FEVER, (Reported) Allergies Coded Allergies: No Known Allergies (Unverified , 06/03/19) Patito Reyes MD Jun 13, 2020 14:30
== END 2020-06-13 10:21 | disposition home or self-care (01) | DRG 720 ==
LOC: M ED 17:28 → M ED INP 22:30 → ENRESERV 23:02 → M PCU 06-10 01:22
PROVIDERS: ADMIT Family Medicine; ATTEND Internal Medicine
DX: A41.9 Sepsis, unspecified organism (principal); N41.0 Acute prostatitis; I10 Essential (primary) hypertension; E03.9 Hypothyroidism, unspecified; Z90.5 Acquired absence of kidney; Z85.528 Personal history of other malignant neoplasm of kidney; Z79.899 Other long term (current) drug therapy; R31.9 Hematuria, unspecified; Z20.828 Contact with and (suspected) exposure to other viral communicable diseases

== ENCOUNTER 2020-07-30 17:59 | Emergency (ER) | payer BC ==
[~2020-07-30] VITALS: Ht 175.3 cm; Wt 90.9 kg
[~2020-07-30 17:59] MED LIST changes: -ALBUTEROL 90 MCG/ACT 8GM HFA INHALER INH PRN; -ALBUTEROL SULFATE 2.5 MG/0.5 ML INH NEB SOLN INH PRN; -BAMLANIVIMAB 700 MG in NS 180 ML IV ONE; -EPINEPHrine INJ 1 MG/ML 1ML AMP IM PRN; -NS 1,000 ML IV SCH; -diphenhydrAMINE 50MG/ML VIAL (J1200) IV PRN; -methylPREDNISolone 125MG 2ML VIAL IV PRN
[2020-07-30 18:01] VITALS: BP 138/73
--- NOTE | 2020-07-30 20:18 | REP ---
INDICATION: sob, fever, covid exposure COMPARISON: 06/09/2020 TECHNIQUE: Portable AP view of the chest FINDINGS: The mediastinum and cardiac silhouette are stable and within normal limits for portable technique. The lung ann demonstrate coarsened interstitial markings which may reflect chronic change as well as bronchitis/viral pneumonia. No discrete focal consolidation. No effusion or pneumothorax. Skeletal structures are intact. IMPRESSION: Chronic appearing changes. Superimposed coarsened markings raise the possibility of bronchitis/viral pneumonia. No focal consolidation. <Electronically signed by Amandeep Quinn > 07/30/202014
[2020-07-30] MEDS ORDERED: NS 1,000 ML IV SCH (21:09)
--- NOTE | 2020-07-30 21:13 | HPEPDOC ---
[facility] Medical History & Physical History and Physical CHIEF COMPLAINT: HISTORY OF PRESENT ILLNESS: PAST MEDICAL HISTORY: 1. . 2. . 3. . PAST SURGICAL HISTORY: 1. . 2. . 3. . SOCIAL HISTORY: Marital status: . Resides in: Children: Employment: Tobacco use: ETOH: Illicit drug use: Tattoos done unprofessionally: . IV drug use: Other relevant social factors: FAMILY HISTORY: Father: Mother: Siblings: Children: Hereditary Diseases: Unexpected deaths due to medical reasons: ALLERGIES: Please see below. REVIEW OF SYSTEMS: CONSTITUTIONAL: . HEENT: . CARDIOVASCULAR: . RESPIRATORY: . GASTROINTESTINAL: . GENITOURINARY: . SKIN: . MUSCULOSKELETAL: . NEUROLOGICAL: . PSYCHIATRIC: . ENDOCRINE: . HEMATOLOGIC/LYMPHATIC: . HOME MEDICATIONS: Please see below. PHYSICAL EXAMINATION: VITAL SIGNS: Temperature , pulse , respiratory rate , blood pressure , pulse oximetry % on room air. GENERAL APPEARANCE: . HEENT: . CARDIOVASCULAR: . LUNGS: . ABDOMEN: . MUSCULOSKELETAL: . EXTREMITIES: . NEUROLOGICAL: . PSYCHIATRIC: . LABORATORY DATA: See below. IMAGING: MICROBIOLOGY: Please see below. ASSESSMENT: . . PLAN: 1. . Laboratory Data Labs 24H Laboratory Tests 2 07/30/20 18:44: Coronavirus (COVID-19)(PCR) POSITIVEA Home Medications Scheduled Amlodipine Besylate (Amlodipine Besylate) 10 Mg Tablet, 5 MG PO DAILY Levothyroxine Sodium (Synthroid) 112 Mcg Tablet, 112 MCG PO DAILY Losartan Potassium (Losartan Potassium) 50 Mg Tablet, 50 MG PO DAILY Scheduled PRN Acetaminophen (Tylenol Extra Strength) 500 Mg Tablet, 1,000 MG PO Q6H PRN for PAIN / FEVER Allergies Coded Allergies: No Known Allergies (Unverified , 06/03/19) BOB JOHNSON MD Jul 30, 2020 21:13
[2020-07-30] MEDS ORDERED: methylPREDNISolone 125MG 2ML VIAL IV PRN (21:15)
[2020-07-30] MEDS ORDERED: ALBUTEROL 90 MCG/ACT 8GM HFA INHALER INH PRN (21:15)
[2020-07-30] MEDS ORDERED: BAMLANIVIMAB 700 MG in NS 180 ML IV ONE (21:15)
[2020-07-30] MEDS ORDERED: EPINEPHrine INJ 1 MG/ML 1ML AMP IM PRN (21:15)
[2020-07-30] MEDS ORDERED: ALBUTEROL SULFATE 2.5 MG/0.5 ML INH NEB SOLN INH PRN (21:15)
[2020-07-30] MEDS ORDERED: diphenhydrAMINE 50MG/ML VIAL (J1200) IV PRN (21:15)
== END 2020-07-30 23:12 | disposition home or self-care (01) ==
LOC: M ED 17:59
DX: U07.1 COVID-19 (principal); Z20.828 Contact with and (suspected) exposure to other viral communicable diseases; I10 Essential (primary) hypertension; C64.9 Malignant neoplasm of unspecified kidney, except renal pelvis; Z90.5 Acquired absence of kidney; Z79.899 Other long term (current) drug therapy
CPT/HCPCS: 71045; 99282; U0002

== ENCOUNTER → 2020-07-30 | Outpatient (CLI) | payer BC ==
[~2020-07-30] VITALS: Ht 175.3 cm; Wt 90.4 kg
[~2020-07-30] MED LIST changes: +ACET-897 PO; +ALBUTEROL 90 MCG/ACT 8GM HFA INHALER INH PRN; +ALBUTEROL SULFATE 2.5 MG/0.5 ML INH NEB SOLN INH PRN; +AMLO1TAB25 PO; +BAMLANIVIMAB 700 MG in NS 180 ML IV ONE; +CIPR500T3; +CIPR500T3 PO; +EPINEPHrine INJ 1 MG/ML 1ML AMP IM PRN; +LEVO500T3 PO; +LOSA50TA88; +LOSA50TA88 PO; +NS 1,000 ML IV SCH; +PROBCAP14 PO; +diphenhydrAMINE 50MG/ML VIAL (J1200) IV PRN; +methylPREDNISolone 125MG 2ML VIAL IV PRN
[2020-07-30 23:20] VITALS: BP 133/68
--- NOTE | 2020-07-30 23:38 | HPEPDOC ---
[facility] Medical History & Physical Date of Admission Jul 30, 2020 Date of Service: Jul 30, 2020 Attending Physician: BOB JOHNSON MD History and Physical TIME OF SERVICE: 840PM CHIEF COMPLAINT: URI symptoms HISTORY OF PRESENT ILLNESS: This 65 yr old M was diagnosed with COVID-19 on Jul 20 presented w/o hot flashes, cough, and sore throat; his step son also has COVID. REVIEW OF SYSTEMS: 12-point review of systems negative except as listed in HPI PAST MEDICAL/ SURGICAL HISTORY: Chronic HTN History of liposarcoma with left-sided nephrectomy follows with Dr. Bailey Hypothyroidism SOCIAL HISTORY: He doesnt smoke FAMILY HISTORY: Bladder cancer, diabetes and thyroid cancer ALLERGIES: Please see below. HOME MEDICATIONS: Please see below. PHYSICAL EXAMINATION: Vital Signs Date Time Temp Pulse Resp B/P (MAP) Pulse Ox O2 Delivery O2 Flow Rate FiO2 07/30/20 23:20 97.3 64 18 133/68 (89) 95 Room Air GENERAL APPEARANCE: well-nourished well developed HEENT: mask in place CARDIOVASCULAR: RRR/NMRG LUNGS: coughing/ breath sounds diminished MUSCULOSKELETAL: seated in hospital chair PSYCHIATRIC: A&Ox 3 IMAGING: Chest xray Chronic appearing changes. Superimposed coarsened markings raise the possibility of bronchitis/viral pneumonia. No focal consolidation MICROBIOLOGY: COVID 19 + ASSESSMENT: is a 65 yr old w a hx or Chronic HTN, liposarcoma with left-sided nephrectomy follows & Hypothyroidism who is a candidate for infusion of Bamlanivimab. PLAN: 1.COVID 19 qCSI score = 0 = in patient admission not indicated He provided written consent Plan: COVID out patient order set with infusion of Bamlanivimab Home Medications Scheduled Amlodipine Besylate (Amlodipine Besylate) 10 Mg Tablet, 5 MG PO DAILY Levothyroxine Sodium (Synthroid) 112 Mcg Tablet, 112 MCG PO DAILY Losartan Potassium (Losartan Potassium) 50 Mg Tablet, 50 MG PO DAILY Scheduled PRN Acetaminophen (Tylenol Extra Strength) 500 Mg Tablet, 1,000 MG PO Q6H PRN for PAIN / FEVER Allergies Coded Allergies: No Known Allergies (Unverified , 06/03/19) A-FIB/CHADSVASC A-FIB History Current/History of A-Fib/PAF?: No Current PO Anticoag Therapy: No BOB JOHNSON MD Jul 30, 2020 23:38
[2020-07-31 01:39] VITALS: BP 151/76
[2020-07-31 02:10] VITALS: BP 146/64
[2020-07-31 02:40] VITALS: BP 144/70
[2020-07-31 03:00] VITALS: BP 130/64
== END ==
LOC: M OPCLIICU 21:09 → UNDOFXCLIACCOM 23:20 → M ICU 23:20 → UNDOFXCLIRRACCOM 23:20 → M OPCLIICU 23:20 → EDCLIBED 23:20 → UNDOFXCLISVC 23:20
PROVIDERS: ATTEND Internal Medicine
DX: U07.1 COVID-19 (principal)

== ENCOUNTER → 2020-11-02 | Outpatient (REF) | payer BC | LOC: M LAB REF 16:47 | PROVIDERS: ATTEND Nurse Practitioner Family | DX: R80.9 Proteinuria, unspecified (principal) ==

== ENCOUNTER → 2021-01-17 | Outpatient (CLI) | payer BC | LOC: M WUC 14:34 | PROVIDERS: ATTEND Urology | DX: R97.20 Elevated prostate specific antigen [PSA] (principal) ==

== ENCOUNTER → 2021-07-07 | Outpatient (REF) | payer BC ==
[~2021-07-07] MED LIST changes: -LEVO500T3 PO; +LEVO500T4 PO; +LOSA50TA28; +LOSA50TA28 PO; -LOSA50TA88; -LOSA50TA88 PO
== END ==
LOC: M WUC 15:40
PROVIDERS: ATTEND Urology
DX: R97.20 Elevated prostate specific antigen [PSA] (principal)

== ENCOUNTER → 2021-11-02 | Outpatient (REF) | payer BC ==
[2021-11-02 17:31] LABS: TOTAL PROTEIN,RANDOM URINE 65.3 MG/DL (0.0-12.0)
== END ==
LOC: M LAB REF 16:42
PROVIDERS: ATTEND Nurse Practitioner Family
DX: R80.9 Proteinuria, unspecified (principal)

== ENCOUNTER → 2022-02-07 | Outpatient (CLI) | payer BC | LOC: M WUC 13:18 | PROVIDERS: ATTEND Urology | DX: R97.20 Elevated prostate specific antigen [PSA] (principal) ==

== ENCOUNTER → 2023-03-26 | Outpatient (CLI) | payer MEDICARE ==
[~2023-03-26] MED LIST changes: +LEVO1TAB39 PO; -LEVO500T4 PO
== END ==
LOC: M PLALAB 09:20
PROVIDERS: ATTEND Urology
DX: R97.20 Elevated prostate specific antigen [PSA] (principal)

== ENCOUNTER 2023-08-21 14:24 | Emergency (ER) | payer BC, MEDICARE ==
[~2023-08-21] VITALS: Ht 175.3 cm; Wt 100.1 kg
[2023-08-21] MEDS ORDERED: TAMS1CAP17 (14:39)
[2023-08-21] MEDS ORDERED: LEVO112T2 (14:39)
[2023-08-21] MEDS ORDERED: LOSA100T46 (14:39)
[2023-08-21] MEDS ORDERED: ASPIRIN 81MG CHEW TABLET PO ONE (15:30)
[2023-08-21 15:41] LABS: BASO # 0.1 10^3/uL (0.0-0.2); EOS # 0.2 10^3/uL (0.0-0.5); EOS % 2.1 % (0.0-3.0); HEMATOCRIT 44.5 % (42.0-52.0); HEMOGLOBIN 14.7 g/dl (13.5-17.5); LYMPH # 1.6 10^3/uL (1.5-5.0); LYMPH % 20.6 % (24.0-44.0); MEAN CORPUSCULAR HEMOGLOBIN 27.6 pg (27.0-33.0); MEAN CORPUSCULAR VOLUME 83.6 fl (80.0-96.0); MONO # 0.6 10^3/uL (0.0-0.8); MONO % 7.6 % (2.0-8.0); NEUTROPHILS # 5.3 10^3/uL (1.5-8.5); NEUTROPHILS % 68.1 % (36.0-66.0); PLATELET COUNT, AUTOMATED 312 10^3/uL (150-450); RED BLOOD COUNT 5.32 10^6/uL (4.30-6.10); WHITE BLOOD COUNT 7.8 10^3/uL (4.0-10.0)
[2023-08-21 16:03] LABS: CK-MB VALUE MASS 2.3 NG/ML (<3.6); LIPASE 45 U/L (12-53)
[2023-08-21 16:05] LABS: ALBUMIN 3.9 G/DL (3.2-5.2); ALKALINE PHOSPHATASE 71 U/L (46-116); ALT/SGPT 37 U/L (7.0-40); AST/SGOT 25 U/L (<34); BILIRUBIN,DIRECT < 0.1 MG/DL (<0.4); BILIRUBIN,TOTAL 0.2 MG/DL (0.3-1.2); BLOOD UREA NITROGEN 30 MG/DL (9-23); CALCIUM LEVEL 9.4 MG/DL (8.3-10.6); CARBON DIOXIDE LEVEL 29 MMOL/L (20-31); CHLORIDE LEVEL 105 MMOL/L (98-107); CREATININE FOR GFR 1.03 MG/DL (0.70-1.30); GLOMERULAR FILTRATION RATE > 60.0 (>49); GLUCOSE, FASTING 103 MG/DL (74-106); POTASSIUM SERUM 4.6 MMOL/L (3.5-5.1); SODIUM LEVEL 138 MMOL/L (136-145); TOTAL PROTEIN 7.3 G/DL (5.7-8.2)
[2023-08-21 16:07] LABS: CPK CREATINE PHOSPHOKINASE 251 U/L (46-171); MB/CK RELATIVE INDEX 0.91 (< OR =4)
[2023-08-21] MEDS ORDERED: ISOVUE-370 76% 100ML VIAL As Ordered ONE (16:29)
[2023-08-21 17:08] LABS: CK-MB VALUE MASS 1.7 NG/ML (<3.6)
[2023-08-21 17:09] LABS: MB/CK RELATIVE INDEX 0.77 (< OR =4)
[2023-08-21] MEDS ORDERED: NITR0.4S14 SL (17:22)
[2023-08-21] MEDS ORDERED: ASPI81TA26 PO (17:22)
[2023-08-21 17:49] VITALS: BP 153/85; TEMP 97.4; O2SAT 98
== END 2023-08-21 17:51 | disposition home or self-care (01) ==
LOC: M ED 14:24
DX: R07.9 Chest pain, unspecified (principal); I10 Essential (primary) hypertension; Z82.49 Family history of ischemic heart disease and other diseases of the circulatory system; Z79.899 Other long term (current) drug therapy
CPT/HCPCS: 71045; 71275; 80048; 80076; 82550; 82553; 83690; 84484; 85025; 87635; 93005; 93041; 94760; 99285; Q9967

== ENCOUNTER → 2024-02-26 | Outpatient (REF) | payer MEDICARE ==
[~2024-02-26] MED LIST changes: +ASPI81TA26 PO; +LEVO112T2; +LOSA100T46; +NITR0.4S14 SL; +TAMS1CAP17
[2024-02-26 18:40] LABS: BLOOD UREA NITROGEN 21 MG/DL (9-23); CREATININE FOR GFR 1.03 MG/DL (0.70-1.30); GLOMERULAR FILTRATION RATE > 60.0 (>49); PROSTATIC SPECIFIC AG MONITOR 3.75 NG/ML (< 4.00)
== END ==
LOC: M LABDRWAD 17:22
PROVIDERS: ATTEND Urology
DX: R97.20 Elevated prostate specific antigen [PSA] (principal); Z85.528 Personal history of other malignant neoplasm of kidney

== ENCOUNTER → 2024-04-18 | Outpatient (REF) | payer MEDICARE ==
[2024-04-22 19:41] LABS: FERRITIN 186.8 NG/ML (10.5-307.3); PERCENT SATURATION 18.1 % (19.7-50.0)
== END ==
LOC: M LAB REF 17:44
PROVIDERS: ATTEND Nurse Practitioner Family
DX: D64.9 Anemia, unspecified (principal)

== ENCOUNTER → 2024-04-22 | Outpatient (CLI) | payer MEDICARE | LOC: M PLAIMG 10:49 | PROVIDERS: ATTEND Nurse Practitioner Family | DX: M19.011 Primary osteoarthritis, right shoulder (principal) ==

== ENCOUNTER → 2024-10-29 | Outpatient (REF) | payer MEDICARE ==
[2024-10-29 18:10] LABS: TOTAL PROTEIN,RANDOM URINE 146.7 MG/DL (0.0-14.0)
== END ==
LOC: M LAB REF 17:08
PROVIDERS: ATTEND Nurse Practitioner Family
DX: R80.9 Proteinuria, unspecified (principal)

== ENCOUNTER → 2025-03-12 | Outpatient (CLI) | payer MEDICARE ==
[2025-03-12 13:35] LABS: CREATININE FOR GFR 1.01 MG/DL (0.70-1.30); GLOMERULAR FILTRATION RATE 81.5 (>49)
== END ==
LOC: M LABDRWAD 08:34
PROVIDERS: ATTEND Urology
DX: Z85.528 Personal history of other malignant neoplasm of kidney (principal)

== ENCOUNTER → 2025-03-25 | Outpatient (REF) | payer MEDICARE | LOC: M LABDRWAD 12:56 | PROVIDERS: ATTEND Urology | DX: R97.20 Elevated prostate specific antigen [PSA] (principal) ==

== ENCOUNTER → 2025-04-01 | Outpatient (CLI) | payer MEDICARE | LOC: M PLAIMG 09:21 | PROVIDERS: ATTEND Urology | DX: Z85.528 Personal history of other malignant neoplasm of kidney (principal) ==

== ENCOUNTER → 2025-05-25 | Outpatient (CLI) | payer MEDICARE | LOC: M RAD 13:31 | PROVIDERS: ATTEND Nurse Practitioner Family | DX: K40.90 Unilateral inguinal hernia, without obstruction or gangrene, not specified as recurrent (principal); R10.9 Unspecified abdominal pain ==